=== PATIENT | male | born 1965 | race Caucasian/White ===

== ENCOUNTER 2017-11-02 11:56 | Emergency (ER) | payer OTHER ==
[~2017-11-02] VITALS: Ht 177.8 cm; Wt 127.0 kg
--- NOTE | 2017-11-02 12:00 | ED PSYCHIATRIC COMPLAINT ---
History of Present Illness General Chief Complaint: Psychiatric Related Complaint Stated Complaint: BIBA BH CARE, +SI Source: patient Exam Limitations: no limitations Vital Signs & Intake/Output Vital Signs & Intake/Output Vital Signs Date Time Temp Pulse Resp B/P B/P Pulse O2 O2 Flow FiO2 Mean Ox Delivery Rate 11/02 1635 97.4 74 18 130/86 96 11/02 1556 76 172/99 11/02 1541 Room Air Room Air 11/02 1421 98.9 76 20 172/99 98 Room Air 11/02 1228 89 168/94 11/02 1207 99.0 96 20 195/102 99 Room Air Allergies Coded Allergies: No Known Allergies (11/02/17) Triage Nurses Notes Reviewed? yes Onset: Abrupt Duration: day(s): Timing: recent history HPI: 11/02/17 12:30 PM 52-year-old male presents to the emergency department complaining of depression with suicidal ideation. He was referred from [facility]. He had made statements of homicidal ideation. When I ask him how he would hurt himself he said I would shoot myself if I had a gun. He has a history of depression. (Clemente Espinoza DO) Reconcile Medications Atenolol 50 MG TABLET 1 TAB PO DAILY HEART (Reported) Clomipramine HCl 75 MG CAPSULE 1 CAP PO QPM UNKNOWN (Reported) Clonazepam 1 MG TABLET 41 TAB PO DAILY ANXIETY (Reported) Gabapentin 300 MG CAPSULE 2 CAP PO TID MENTAL HEALTH (Reported) (Denia BERGMAN,Garcia Babin) Past History Travel History Traveled to [place] past 21 day No Medical History Any Pertinent Medical History? see below for history Surgical History Surgical History: non-contributory Psychosocial History What is your primary language Greek Family History Hx Contributory? No (Clemente Espinoza DO) Review of Systems Review of Systems Constitutional: Denies: fever. EENTM: Reports: no symptoms. Respiratory: Reports: no symptoms. Cardiovascular: Reports: no symptoms. GI: Reports: no symptoms. Genitourinary: Reports: no symptoms. Musculoskeletal: Reports: no symptoms. Skin: Reports: no symptoms. Neurological/Psychological: Reports: depressed. Hematologic/Endocrine: Reports: no symptoms. Immunologic/Allergic: Reports: no symptoms. (Clemente Espinoza DO) Physical Exam Physical Exam General Appearance: well developed/nourished, alert, awake, anxious, moderate distress Head: atraumatic, normal appearance Eyes: Bilateral: normal appearance, PERRL, EOMI. Ears, Nose, Throat: normal pharynx, normal ENT inspection Neck: normal inspection, supple, full range of motion Respiratory: normal breath sounds, chest non-tender, no respiratory distress Cardiovascular: regular rate/rhythm Gastrointestinal: non-tender Extremities: normal range of motion Neurological/Psychiatric: no motor/sensory deficits, awake, agitated, alert, normal mood/affect Appearance/Memory/Insight: appropriate appearance Behavoir/Eye Contact/Speech: cooperative Thoughts/Hallucinations: normal thought pattern SAD PERSONS SAD PERSONS Response Value Male Sex? yes 1 Age <19 or >45 years? yes 1 Depression/Hopelessness? yes 2 Previous Attempts/Psych Care yes 1 Rational Thinking Loss? yes 2 Single//? yes 1 Social Support? has no support 1 Stated Future Intent? yes 2 Total 11 SAD PERSONS Done? yes (Clemente Espinoza DO) Progress Differential Diagnosis: DEPRESSION Plan of Care: Crisis consultation. (Clemente Espinoza DO) Departure Departure Disposition: HOME OR SELF CARE Condition: Stable Clinical Impression Primary Impression: Depression Departure Forms: Customer Survey General Discharge Information Comments 11/02/17 2:30 PM Labs have been sent. Crisis consult was requested. The patient will be signed out to Dr. Loza at 2 PM (Clemente Espinoza DO) Departure Additional Instructions: Please follow up as per recommendations of the care clinician. Call 211 or return immediately to the emergency department for any concerns of harming herself, anyone else or for any other concerns. Follow up with your appointment at [facility]. (Denia BERGMAN,Garcia Babin)
[2017-11-02] MEDS ORDERED: GABAPENTIN300 M2 PO (12:25)
[2017-11-02] MEDS ORDERED: CLOMIPRAMINE HC75 M1 PO (12:25)
[2017-11-02] MEDS ORDERED: ATENOLOL50 M1 PO (12:26)
[2017-11-02] MEDS ORDERED: CLONAZEPAM1 M2 PO (12:26)
[2017-11-02 13:06] LABS: ABSOLUTE BASOPHIL COUNT 0.1 /CUMM (0.0-0.2); ABSOLUTE EOSINOPHIL COUNT 0.4 /CUMM (0.0-0.7); ABSOLUTE GRANULOCYTE CT 5.7 /CUMM (1.4-6.5); ABSOLUTE LYMPH COUNT 2.4 /CUMM (1.2-3.4); ABSOLUTE MONOCYTE COUNT 0.6 /CUMM (0.10-0.60); BASOPHIL % 0.8 % (0.0-2.0); GRANULOCYTE % 61.9 % (42.2-75.2); HEMATOCRIT 44.6 % (42-52); MEAN CORPUSCULAR HGB 31.4 PG (27.0-31.0); MEAN CORPUSCULAR HGB CONC 34.5 G/DL (33.0-37.0); MEAN CORPUSCULAR VOLUME 91.1 FL (80.0-94.0); MEAN PLATELET VOLUME 7.8 FL (7.4-10.4); PLATELET COUNT 365 /CUMM (130-400); RBC DISTRIBUTION WIDTH 13.4 % (11.5-14.5); WHITE BLOOD CELL COUNT 9.2 /CUMM (4.8-10.8)
[2017-11-02 16:35] VITALS: BP 130/86
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
== END 2017-11-02 17:01 ==
LOC: ERH 11:56
PROVIDERS: Emergency Medicine
DX: F32.9 Major depressive disorder, single episode, unspecified (principal); R45.851 Suicidal ideations
CPT/HCPCS: 80307; G0463; G0480